=== PATIENT | male | born 1945 | race Caucasian/White ===

== ENCOUNTER 2018-08-06 17:49 | Observation (INO) ==
[2018-08-06 18:31] LABS: Basophils % 0.9 % (0.0-0.8); Eosinophils # 0.1 10*3/uL (0.0-0.87); Eosinophils % 2.2 % (0.00-10.9); Hematocrit 40.4 VOL% (42.0-52.0); Hemoglobin 13.5 GM/DL (14.0-18.0); Immature Granulocytes % 0.2 %; Immature Granulocytes Absolute 0.01 #; Lymphocytes # 1.2 10*3/uL (1.4-4.0); Lymphocytes % 26.1 % (21.2-54.2); Mean Corpuscular HGB Conc 33.4 GM/DL (32-36); Mean Corpuscular Hemoglobin 29 PG (27-34); Mean Corpuscular Volume 86.7 FL (87-102); Mean Platelet Volume 9.6 FL (9.6-12.0); Monocytes # 0.5 10*3/uL (0.11-0.8); Monocytes % 11.4 % (1.7-12.7); Neutrophils # 2.7 10*3/uL (1.4-7.4); Neutrophils % 59.2 % (38.7-73.9); Platelet Count 235 T/CUMM (130-400); Red Blood Count 4.66 MC/CUMM (3.8-5.5); Red Cell Distribution Width 13.5 % (9.3-17.3); White Blood Count 4.5 T/CUMM (4-12)
[2018-08-06 18:42] LABS: INR 0.9
[2018-08-06 18:54] LABS: Alanine Aminotransferase 19 U/L (16-61); Albumin 3.5 G/DL (3.4-5.0); Alkaline Phosphatase 49 U/L (45-117); Aspartate Amino Transferase 15 U/L (0-37); Bilirubin,Total < 0.39 MG/DL (0.2-1.0); Blood Urea Nitrogen 24 MG/DL (7-18); Calcium 9.3 MG/DL (8.5-10.1); Glucose 89 MG/DL (74-106); Osmolality,Calculated 283.3 MOS/KG (273-304); Potassium 3.9 MMOL/L (3.5-5.1); Sodium 141 MMOL/L (136-145); Total Protein 7.5 G/DL (6.4-8.3)
[2018-08-06] MEDS ORDERED: ASPIRIN 325 MG TABLET PO STA (20:30)
[2018-08-06] MEDS ORDERED: ENOXAPARIN 100 MG/ML SYRINGE SUBCUT STA (20:30)
[2018-08-06] MEDS ORDERED: MORPHINE 4 MG/1 ML VIAL IV STA (20:30)
[2018-08-06] MEDS ORDERED: NITROGLYCERIN 2% OINT 1 INCH/GM PACK TOP STA (20:30)
[2018-08-06] MEDS ORDERED: ONDANSETRON 4 MG/2 ML VIAL IV STA (20:30)
[2018-08-06] MEDS ORDERED: ALUM/MAG/SIMETH/LIDO VISC 1:1 30 ML BOTTLE PO STA (20:30)
[2018-08-06] MEDS ORDERED: MORPHINE 4 MG/1 ML VIAL IV PRN (22:21)
[2018-08-06] MEDS ORDERED: ONDANSETRON 4 MG/2 ML VIAL IV PRN (22:21)
[2018-08-07 05:04] LABS: Risk Ratio 2.47
[2018-08-07] MEDS ORDERED: ASPIRIN EC 81 MG TABLET PO SCH (09:00)
[2018-08-07] MEDS ORDERED: CETIRIZINE 10 MG TABLET PO SCH (09:00)
[2018-08-07] MEDS ORDERED: FLUTICASONE 50 MCG NASAL SPRAY 16 GM BOTTLE BOTH NARES SCH (09:00)
[2018-08-07] MEDS ORDERED: SIMVASTATIN 20 MG TABLET PO SCH (09:00)
[2018-08-07] MEDS ORDERED: ASPIRIN EC 325 MG TABLET PO SCH (09:00)
[2018-08-07] MEDS ORDERED: LISINOPRIL 10 MG TABLET PO SCH (09:00)
[2018-08-07] MEDS ORDERED: ENOXAPARIN 60 MG/0.6 ML SYRINGE SUBCUT SCH (09:00)
[2018-08-07 12:04] VITALS: BP 125/70
[2018-08-07] MEDS ORDERED: FAMOTIDINE 20 MG TABLET PO SCH (21:00)
[2018-08-07] MEDS ORDERED: diphenhydrAMINE CAP 25 MG CAPSULE PO SCH (21:00)
[2018-08-07] MEDS ORDERED: GABAPENTIN 300 MG CAPSULE PO SCH (21:00)
== END 2018-08-07 15:40 | disposition home or self-care (01) ==
LOC: N.EDINP 17:49 → N.ED 17:49 → N.3E 08-07 00:12
PROVIDERS: ADMIT Internal Medicine; ATTEND Internal Medicine

== ENCOUNTER 2018-10-03 10:16 | Inpatient (IN) ==
[~2018-10-03 10:16] MED LIST: CETIRIZINE 10 MG TABLET PO SCH; DEXTROSE 50% 25 GM/50 ML SYRINGE IV PRN; GLUCAGON 1 MG VIAL IM PRN; VANCOMYCIN INJ 1,000 MG in SODIUM CHLORIDE 0.9% 250 ML IV ONE; amLODIPine 5 MG TABLET PO SCH
[2018-10-03 11:13] LABS: Basophils # 0.1 10*3/uL (0.0-0.2); Basophils % 1.1 % (0.0-0.8); Eosinophils # 0.2 10*3/uL (0.0-0.87); Eosinophils % 4.5 % (0.00-10.9); Hematocrit 40.3 VOL% (42.0-52.0); Hemoglobin 13.4 GM/DL (14.0-18.0); Immature Granulocytes % 0.2 %; Immature Granulocytes Absolute 0.01 #; Lymphocytes # 1.3 10*3/uL (1.4-4.0); Lymphocytes % 28.3 % (21.2-54.2); Mean Corpuscular HGB Conc 33.3 GM/DL (32-36); Mean Corpuscular Hemoglobin 29 PG (27-34); Mean Corpuscular Volume 87.8 FL (87-102); Mean Platelet Volume 9.8 FL (9.6-12.0); Monocytes # 0.6 10*3/uL (0.11-0.8); Monocytes % 12.8 % (1.7-12.7); Neutrophils # 2.4 10*3/uL (1.4-7.4); Neutrophils % 53.1 % (38.7-73.9); Platelet Count 224 T/CUMM (130-400); Red Blood Count 4.59 MC/CUMM (3.8-5.5); Red Cell Distribution Width 13.6 % (9.3-17.3); White Blood Count 4.5 T/CUMM (4-12)
[2018-10-03 11:25] LABS: ABG HCO3 25.3 MMOL/L (20-26); ABG Oxygen Saturation 97.3 % (95-100); ABG PCO2 38.4 MM HG (35-48); ABG PH 7.425 (7.35-7.45); ABG PO2 88.4 MM HG (80-95); ABG TCO2 21.9 MMOL/L (23-27)
[2018-10-03 11:50] LABS: Alanine Aminotransferase 27 U/L (16-61); Albumin 3.7 G/DL (3.4-5.0); Alkaline Phosphatase 50 U/L (45-117); Aspartate Amino Transferase 19 U/L (0-37); Bilirubin,Total < 0.39 MG/DL (0.2-1.0); Blood Urea Nitrogen 14 MG/DL (7-18); Glucose 92 MG/DL (74-106); Osmolality,Calculated 283.1 MOS/KG (273-304); Sodium 142 MMOL/L (136-145); Total Protein 7.4 G/DL (6.4-8.3)
[2018-10-03] MEDS: ASPIRIN EC 81 MG TABLET PO SCH (13:38)
[2018-10-03] MEDS: FLUTICASONE 50 MCG NASAL SPRAY 16 GM BOTTLE BOTH NARES SCH ×2 (13:43→22:06)
[2018-10-03] MEDS: LISINOPRIL 20 MG TABLET PO SCH (13:44)
[2018-10-03] MEDS: CHLORHEXIDINE 0.12% ORAL RINSE 60 ML BOTTLE SWISH/SPIT SCH ×2 (13:45→22:06)
[2018-10-03] MEDS: CHLORHEXIDINE 4% SOLN 118 ML BOTTLE TOP SCH ×2 (16:40→22:05)
[2018-10-03] MEDS ORDERED: SIMVASTATIN 20 MG TABLET PO SCH (21:00)
[2018-10-03] MEDS ORDERED: GABAPENTIN 300 MG CAPSULE PO SCH (21:00)
[2018-10-03] MEDS ORDERED: diphenhydrAMINE CAP 25 MG CAPSULE PO SCH (21:00)
[2018-10-03] MEDS ORDERED: FAMOTIDINE 20 MG TABLET PO SCH (21:00)
[2018-10-03] MEDS ORDERED: amLODIPine 5 MG TABLET PO SCH (21:00)
[2018-10-03] MEDS: FAMOTIDINE 20 MG TABLET PO SCH (22:03)
[2018-10-04] MEDS ORDERED: VANCOMYCIN 1,000 MG VIAL ONE (05:17)
[2018-10-04] MEDS ORDERED: SUFentanil 250 MCG/5 ML AMP ONE (05:41)
[2018-10-04] MEDS ORDERED: PHENYLEPHRINE DRIP 20 MG/250 ML PREMIX IV ONE (05:41)
[2018-10-04] MEDS ORDERED: HEPARIN/NACL 0.9% 2 UNITS/ML 500 ML IV ONE (05:41)
[2018-10-04] MEDS ORDERED: CALCIUM CHLORIDE 1,000 MG/10 ML VIAL IV ONE (05:41)
[2018-10-04] MEDS ORDERED: ePHEDrine 50 MG/ML AMP ONE (05:41)
[2018-10-04] MEDS ORDERED: MIDAZOLAM 10 MG/2 ML VIAL ONE (05:41)
[2018-10-04] MEDS ORDERED: SODIUM CHLORIDE 0.9% 250 ML IV ONE (05:42)
[2018-10-04] MEDS ORDERED: ETOMIDATE 40 MG/20 ML VIAL IV ONE (05:42)
[2018-10-04] MEDS ORDERED: NITROGLYCERIN DRIP 50 MG/250 ML BOTTLE IV ONE (05:42)
[2018-10-04] MEDS ORDERED: VECURONIUM 10 MG VIAL IV ONE (05:42)
[2018-10-04] MEDS ORDERED: LACTATED RINGERS 1,000 ML IV ONE ×5 (05:42→17:00)
[2018-10-04] MEDS ORDERED: AMINOCAPROIC ACID 5,000 MG/20 ML VIAL ONE (05:42)
[2018-10-04] MEDS ORDERED: SODIUM CHLORIDE 0.9% 1,000 ML IV ONE (05:42)
[2018-10-04] MEDS ORDERED: DIAZEPAM 5 MG TABLET PO ONE (06:00)
[2018-10-04] MEDS ORDERED: VANCOMYCIN INJ 1,000 MG in SODIUM CHLORIDE 0.9% 250 ML IV ONE (07:00)
[2018-10-04 07:42] LABS: ABG Base Excess 0.4 MMOL/L (-2.5-2.5); ABG HCO3 24.8 MMOL/L (20-26); ABG Oxygen Saturation 99.5 % (95-100); ABG PCO2 43.8 MM HG (35-48); ABG PH 7.379 (7.35-7.45); ABG TCO2 22.8 MMOL/L (23-27); Glucose Heart Surgery 98 MG/DL (74-106); Hematocrit Heart Surgery 38.1 PERCENT (42-52); Hemoglobin Heart Surgery 12.4 G/DL (14.0-18.0); Ionized Calcium Arterial 1.22 MMOL/L (1.21-1.46); PCO2 Patient Temp Arterial 43.8 MMHG; PH Patient Temp Arterial 7.379; Patient Temperature 37 CELCIUS; Potassium Heart/CVR 3.6 MMOL/L (3.5-5.1); Sodium Heart/CVR 140 MMOL/L (135-145)
[2018-10-04 07:47] LABS: Apearance,Urine CLEAR (Clear); Bilirubin,Urine Negative (Negative); Blood, Urine Negative (Negative); Glucose,Urine (UA) Negative (Negative); Ketones,Urine Negative (Negative); Mucus,Urine Occasional /LPF (Occasional); Nitrite,Urine Negative (Negative); Protein,Urine Negative; RBC,Urine 1 /HPF (0-4); Urine Color Straw (Yellow); Urine Urobilinogen < 2.0 EU/DL (0.2-1.0); WBC,Urine <1 /HPF (0-6)
[2018-10-04 08:27] LABS: Hematocrit Heart Surgery 24.6 PERCENT (42-52); Hemoglobin Heart Surgery 7.9 G/DL (14.0-18.0); PCO2 Patient Temp Venous 33.8 MM HG; PH Patient Temp Venous 7.467; PO2 Patient Temp Venous 39.6 MM HG; Potassium Heart/CVR 4.2 MMOL/L (3.5-5.1); VBG Base Excess 1.1 MEQ/L (0-4); VBG HCO3 25.3 MEQ/L (24-28); VBG Oxygen Saturation 85.8 %; VBG PCO2 39.1 MMHG (41-51); VBG PH 7.422; VBG PO2 48.6 MMHG (17-40)
[2018-10-04 09:00] LABS: Hematocrit Heart Surgery 26.6 PERCENT (42-52); Hemoglobin Heart Surgery 8.6 G/DL (14.0-18.0); PCO2 Patient Temp Venous 28.5 MM HG; PH Patient Temp Venous 7.519; PO2 Patient Temp Venous 36.1 MM HG; Potassium Heart/CVR 4.4 MMOL/L (3.5-5.1); VBG Base Excess 0.9 MEQ/L (0-4); VBG HCO3 25.1 MEQ/L (24-28); VBG PCO2 32.9 MMHG (41-51); VBG PH 7.474; VBG PO2 44.4 MMHG (17-40)
[2018-10-04] MEDS ORDERED: SIMVASTATIN 20 MG TABLET PO SCH (09:00)
[2018-10-04 09:46] LABS: ABG Base Excess -0.7 MMOL/L (-2.5-2.5); ABG HCO3 23.8 MMOL/L (20-26); ABG Oxygen Saturation 99.9 % (95-100); ABG PCO2 37.6 MM HG (35-48); ABG PH 7.407 (7.35-7.45); ABG TCO2 21.6 MMOL/L (23-27); Glucose Heart Surgery 203 MG/DL (74-106); Hematocrit Heart Surgery 30.1 PERCENT (42-52); Hemoglobin Heart Surgery 9.7 G/DL (14.0-18.0); Ionized Calcium Arterial 1.29 MMOL/L (1.21-1.46); PCO2 Patient Temp Arterial 37.6 MMHG; PH Patient Temp Arterial 7.407; Patient Temperature 37 CELCIUS; Potassium Heart/CVR 4.4 MMOL/L (3.5-5.1); Sodium Heart/CVR 133 MMOL/L (135-145)
[2018-10-04] MEDS ORDERED: DEXTROSE 5% KCL 20 MEQ 20 MEQ/1,000 ML BAG IV ONE (09:53)
[2018-10-04] MEDS ORDERED: MANNITOL 100 GM/500 ML BAG IV ONE (09:53)
[2018-10-04] MEDS ORDERED: PROTAMINE SULFATE 250 MG/25 ML VIAL IV ONE (09:54)
[2018-10-04] MEDS ORDERED: methylPREDNISolone SOD SUC 1,000 MG/8 ML VIAL ONE (09:54)
[2018-10-04] MEDS ORDERED: HEPARIN 10,000 UNIT/10 ML VIAL ONE (09:54)
[2018-10-04] MEDS ORDERED: MAGNESIUM SULFATE 10 GM/20 ML VIAL IV ONE (09:54)
[2018-10-04] MEDS ORDERED: SODIUM BICARBONATE 50 MEQ/50 ML SYRINGE IV ONE (09:54)
[2018-10-04] MEDS ORDERED: ALBUMIN 25% 25 GM/100 ML VIAL IV ONE (09:54)
[2018-10-04] MEDS ORDERED: FUROSEMIDE 20 MG/2 ML VIAL ONE (09:54)
[2018-10-04] MEDS ORDERED: NITROPRUSSIDE 50 MG/2 ML VIAL ONE (09:59)
[2018-10-04] MEDS ORDERED: PHENYLEPHRINE DRIP 40 MG/250 ML PREMIX IV ONE (09:59)
[2018-10-04] MEDS ORDERED: CALCIUM CHLORIDE 1,000 MG/10 ML SYRINGE IV ONE (09:59)
[2018-10-04] MEDS ORDERED: POTASSIUM CHLORIDE RIDER 100 ML IV ONE (10:00)
[2018-10-04] MEDS ORDERED: ALBUMIN 5% 12.5 GM/250 ML VIAL IV ONE (10:00)
[2018-10-04] MEDS ORDERED: NITROGLYCERIN DRIP 50 MG/250 ML BOTTLE IV PRN (10:30)
[2018-10-04] MEDS ORDERED: MIDAZOLAM 10 MG/2 ML VIAL IV PRN (10:43)
[2018-10-04] MEDS ORDERED: NITROPRUSSIDE 100 MG in DEXTROSE 5% 250 ML IV PRN (10:43)
[2018-10-04] MEDS ORDERED: LACTATED RINGERS 250 ML IV PRN (10:43)
[2018-10-04] MEDS ORDERED: MORPHINE 4 MG/1 ML VIAL IV PRN (10:43)
[2018-10-04] MEDS ORDERED: DEXTROSE 50% 25 GM/50 ML SYRINGE IV PRN ×2 (10:43)
[2018-10-04] MEDS ORDERED: ACETAMINOPHEN 650 MG SUPP RECTAL PRN (10:43)
[2018-10-04] MEDS ORDERED: INSULIN REGULAR 100 UNIT/ML IV PRN (10:43)
[2018-10-04] MEDS ORDERED: VECURONIUM 10 MG VIAL IV PRN ×2 (10:43)
[2018-10-04] MEDS ORDERED: PHENYLEPHRINE DRIP 40 MG/250 ML PREMIX IV PRN (10:43)
[2018-10-04] MEDS ORDERED: CALCIUM CHLORIDE 1,000 MG/10 ML SYRINGE IV PRN (10:43)
[2018-10-04] MEDS ORDERED: MIDAZOLAM 2 MG/2 ML VIAL IV PRN (10:43)
[2018-10-04] MEDS ORDERED: MAGNESIUM SULF RIDER 2 GM in PREMIX 1 EACH IV PRN (10:43)
[2018-10-04] MEDS ORDERED: MAGNESIUM SULF RIDER 4 GM in PREMIX 1 EACH IV PRN (10:43)
[2018-10-04] MEDS ORDERED: CARBOXYMETHYLCELLULOSE 1% OPH SOLN BOTH EYES PRN (10:43)
[2018-10-04] MEDS ORDERED: INSULIN REGULAR 100 UNIT/ML IV ONE (10:43)
[2018-10-04] MEDS ORDERED: ONDANSETRON 4 MG/2 ML VIAL IV PRN (10:43)
[2018-10-04 10:50] LABS: ABG Base Excess -0.6 MMOL/L (-2.5-2.5); ABG HCO3 23.9 MMOL/L (20-26); ABG Oxygen Saturation 99.9 % (95-100); ABG PCO2 34.7 MM HG (35-48); ABG PH 7.433 (7.35-7.45); ABG TCO2 20.9 MMOL/L (23-27); Glucose Heart Surgery 177 MG/DL (74-106); Hemoglobin Heart Surgery 10.3 G/DL (14.0-18.0); Potassium Heart/CVR 3.9 MMOL/L (3.5-5.1)
[2018-10-04] MEDS ORDERED: PROTAMINE SULFATE 50 MG/5 ML VIAL IV ONE (10:50)
[2018-10-04 10:54] LABS: Basophils % 0.3 % (0.0-0.8); Eosinophils # 0.1 10*3/uL (0.0-0.87); Eosinophils % 1.5 % (0.00-10.9); Hematocrit 29.6 VOL% (42.0-52.0); Immature Granulocytes % 0.5 %; Immature Granulocytes Absolute 0.03 #; Lymphocytes # 0.7 10*3/uL (1.4-4.0); Mean Corpuscular HGB Conc 33.4 GM/DL (32-36); Mean Corpuscular Hemoglobin 29 PG (27-34); Mean Corpuscular Volume 87.6 FL (87-102); Mean Platelet Volume 9.5 FL (9.6-12.0); Monocytes # 0.2 10*3/uL (0.11-0.8); Neutrophils % 82.7 % (38.7-73.9); Red Cell Distribution Width 13.6 % (9.3-17.3)
[2018-10-04 10:58] LABS: Hemoglobin 9.9 GM/DL (14.0-18.0); Red Blood Count 3.38 MC/CUMM (3.8-5.5); White Blood Count 6.1 T/CUMM (4-12)
[2018-10-04 10:59] LABS: Platelet Count 145 T/CUMM (130-400)
[2018-10-04] MEDS ORDERED: INSULIN REGULAR DRIP 100 ML IV SCH (11:00)
[2018-10-04] MEDS ORDERED: SODIUM CHLORIDE 0.45% 1,000 ML IV SCH ×2 (11:00)
[2018-10-04] MEDS ORDERED: SEVOFLURANE 1 UNIT/15 MINUTE INH ONE (11:01)
[2018-10-04] MEDS ORDERED: SODIUM CHLORIDE 0.9% 100 ML IV ONE (11:01)
[2018-10-04 11:03] LABS: INR 1.1; PT Patient Result 11.6 SECS
[2018-10-04 11:09] LABS: Albumin 3.2 G/DL (3.4-5.0); Bilirubin,Total 0.7 MG/DL (0.2-1.0); Osmolality,Calculated 281.5 MOS/KG (273-304); Total Protein 5.6 G/DL (6.4-8.3)
[2018-10-04 11:11] LABS: Troponin I 2.16 NG/ML (0.00-0.045)
[2018-10-04] MEDS: POTASSIUM CHLORIDE RIDER 20 MEQ in PREMIX 1 EACH IV PRN ×4 (11:17→21:19)
[2018-10-04] MEDS: CHLORHEXIDINE 4% SOLN 118 ML BOTTLE TOP SCH (11:22)
[2018-10-04] MEDS: KETOROLAC 30 MG/1 ML VIAL IV SCH ×3 (11:24→23:24)
[2018-10-04] MEDS: POTASSIUM CHLORIDE RIDER 10 MEQ in PREMIX 1 EACH IV PRN ×2 (11:50→16:01)
[2018-10-04 12:55] LABS: ABG Base Excess -1.3 MMOL/L (-2.5-2.5); ABG HCO3 23.4 MMOL/L (20-26); ABG Oxygen Saturation 99.8 % (95-100); ABG PCO2 32.4 MM HG (35-48); ABG PH 7.444 (7.35-7.45); ABG TCO2 20.4 MMOL/L (23-27); Glucose Heart Surgery 154 MG/DL (74-106); Hematocrit Heart Surgery 28.3 PERCENT (42-52); Hemoglobin Heart Surgery 9.1 G/DL (14.0-18.0)
[2018-10-04] MEDS: MORPHINE 10 MG/1 ML VIAL IV PRN ×2 (14:27→23:46)
[2018-10-04 15:12] LABS: ABG Base Excess -3.2 MMOL/L (-2.5-2.5); ABG HCO3 21.7 MMOL/L (20-26); ABG Oxygen Saturation 98.7 % (95-100); ABG PCO2 40.6 MM HG (35-48); ABG PH 7.346 (7.35-7.45); ABG TCO2 20.2 MMOL/L (23-27); Glucose Heart Surgery 219 MG/DL (74-106); Hematocrit Heart Surgery 32.1 PERCENT (42-52); Hemoglobin Heart Surgery 10.4 G/DL (14.0-18.0); Potassium Heart/CVR 3.7 MMOL/L (3.5-5.1)
[2018-10-04] MEDS: ALBUMIN 5% 12.5 GM in PREMIX 1 EACH IV PRN ×2 (15:40→19:33)
[2018-10-04 18:35] LABS: ABG Base Excess -5.3 MMOL/L (-2.5-2.5); ABG Oxygen Saturation 98.9 % (95-100); ABG PCO2 35.5 MM HG (35-48); ABG PH 7.351 (7.35-7.45); ABG TCO2 17.9 MMOL/L (23-27); Glucose Heart Surgery 213 MG/DL (74-106); Hematocrit Heart Surgery 31.3 PERCENT (42-52); Hemoglobin Heart Surgery 10.1 G/DL (14.0-18.0); Potassium Heart/CVR 3.8 MMOL/L (3.5-5.1)
[2018-10-04 18:53] LABS: CKMB % 5.5 %
[2018-10-04 18:55] LABS: Troponin I 2.72 NG/ML (0.00-0.045)
[2018-10-04 20:06] LABS: ABG Base Excess -5.3 MMOL/L (-2.5-2.5); ABG Oxygen Saturation 98.9 % (95-100); ABG PCO2 36.5 MM HG (35-48); ABG PH 7.343 (7.35-7.45); ABG TCO2 18.3 MMOL/L (23-27); Glucose Heart Surgery 177 MG/DL (74-106); Hematocrit Heart Surgery 28.6 PERCENT (42-52); Hemoglobin Heart Surgery 9.2 G/DL (14.0-18.0); Potassium Heart/CVR 3.9 MMOL/L (3.5-5.1)
[2018-10-04] MEDS ORDERED: CHLORHEXIDINE 0.12% ORAL RINSE 60 ML BOTTLE SWISH/SPIT SCH (21:00)
[2018-10-04] MEDS ORDERED: FUROSEMIDE 40 MG/4 ML VIAL IV ONE (22:14)
[2018-10-04] MEDS ORDERED: VANCOMYCIN INJ 1,000 MG in SODIUM CHLORIDE 0.9% 250 ML IV SCH (22:34)
[2018-10-05] MEDS ORDERED: LACTATED RINGERS 1,000 ML IV ONE (00:58)
[2018-10-05 04:09] LABS: ABG Base Excess -0.9 MMOL/L (-2.5-2.5); ABG HCO3 23.9 MMOL/L (20-26); ABG Oxygen Saturation 97.2 % (95-100); ABG PH 7.394 (7.35-7.45); ABG PO2 108.8 MM HG (80-95); ABG TCO2 25.1 MMOL/L (23-27); Glucose Heart Surgery 139 MG/DL (74-106); Potassium Heart/CVR 4.2 MMOL/L (3.5-5.1)
[2018-10-05 04:13] LABS: Basophils % 0.1 % (0.0-0.8); Hematocrit 26.9 VOL% (42.0-52.0); Immature Granulocytes % 0.3 %; Immature Granulocytes Absolute 0.03 #; Lymphocytes # 0.5 10*3/uL (1.4-4.0); Lymphocytes % 5.1 % (21.2-54.2); Mean Corpuscular HGB Conc 33.5 GM/DL (32-36); Mean Corpuscular Hemoglobin 29 PG (27-34); Mean Corpuscular Volume 87.6 FL (87-102); Mean Platelet Volume 10.4 FL (9.6-12.0); Monocytes # 0.5 10*3/uL (0.11-0.8); Monocytes % 4.5 % (1.7-12.7); Neutrophils # 9.3 10*3/uL (1.4-7.4); Platelet Count 124 T/CUMM (130-400); Red Blood Count 3.07 MC/CUMM (3.8-5.5); Red Cell Distribution Width 14.2 % (9.3-17.3); White Blood Count 10.3 T/CUMM (4-12)
[2018-10-05] MEDS: POTASSIUM CHLORIDE RIDER 20 MEQ in PREMIX 1 EACH IV PRN (04:22)
[2018-10-05] MEDS ORDERED: SODIUM CHLORIDE 0.9% 1,000 ML IV PRN (04:31)
[2018-10-05 04:40] LABS: Albumin 3.4 G/DL (3.4-5.0); Bilirubin,Direct 0.22 MG/DL (0.0-0.20); Bilirubin,Total 0.6 MG/DL (0.2-1.0); Calcium 8.2 MG/DL (8.5-10.1); Osmolality,Calculated 286.1 MOS/KG (273-304); Potassium 4.2 MMOL/L (3.5-5.1); Total Protein 5.5 G/DL (6.4-8.3)
[2018-10-05 04:42] LABS: CKMB % 3.2 %
[2018-10-05] MEDS: KETOROLAC 30 MG/1 ML VIAL IV SCH ×4 (04:55→23:26)
[2018-10-05] MEDS ORDERED: ONDANSETRON 4 MG/2 ML VIAL IV PRN (07:18)
[2018-10-05] MEDS ORDERED: GLUCAGON 1 MG VIAL IM PRN ×2 (07:18)
[2018-10-05] MEDS ORDERED: ALUMINUM/MAGNES/SIMETH MAX STR 30 ML UDCUP PO PRN (07:18)
[2018-10-05] MEDS ORDERED: oxyCODONE/ACETAMINOPHEN 5-325 MG TABLET PO PRN (07:18)
[2018-10-05] MEDS ORDERED: MAGNESIUM SULF RIDER 4 GM in PREMIX 1 EACH IV PRN (07:18)
[2018-10-05] MEDS ORDERED: ZALEPLON 5 MG CAPSULE PO PRN (07:18)
[2018-10-05] MEDS ORDERED: DEXTROSE 50% 25 GM/50 ML SYRINGE IV PRN ×2 (07:18)
[2018-10-05] MEDS ORDERED: MAGNESIUM HYDROXIDE SUSP 30 ML UDCUP PO PRN (07:18)
[2018-10-05] MEDS ORDERED: MAGNESIUM SULF RIDER 2 GM in PREMIX 1 EACH IV PRN (07:18)
[2018-10-05] MEDS: FLUTICASONE 50 MCG NASAL SPRAY 16 GM BOTTLE BOTH NARES SCH ×5 (07:22→20:59)
[2018-10-05] MEDS: CHLORHEXIDINE 0.12% ORAL RINSE 60 ML BOTTLE SWISH/SPIT SCH ×3 (07:23→20:57)
[2018-10-05] MEDS: LISINOPRIL 20 MG TABLET PO SCH (07:23)
[2018-10-05] MEDS: ASPIRIN EC 81 MG TABLET PO SCH (07:23)
[2018-10-05] MEDS: INSULIN REGULAR 100 UNIT/ML SUBCUT SCH ×5 (08:13→21:02)
[2018-10-05 08:19] LABS: Hematocrit 30.6 VOL% (42.0-52.0); Hemoglobin 10.2 GM/DL (14.0-18.0)
[2018-10-05] MEDS: ASPIRIN EC 325 MG TABLET PO SCH (08:20)
[2018-10-05] MEDS: FERROUS SULFATE 325 MG TABLET PO SCH (08:20)
[2018-10-05] MEDS: DOCUSATE SODIUM 100 MG CAPSULE PO SCH (08:20)
[2018-10-05] MEDS: LORATADINE 10 MG TABLET PO SCH (08:20)
[2018-10-05] MEDS: CETIRIZINE 10 MG TABLET PO SCH (08:20)
[2018-10-05] MEDS: PANTOPRAZOLE 40 MG TABLET PO SCH (08:21)
[2018-10-05] MEDS: FAMOTIDINE 20 MG TABLET PO SCH (09:33)
[2018-10-05] MEDS: SODIUM CHLORIDE 0.9% 1,000 ML IV SCH ×2 (09:33→09:34)
[2018-10-05] MEDS: SODIUM CHLOR 0.45% KCL 20 MEQ 20 MEQ/1,000 ML BAG IV SCH (09:53)
[2018-10-05] MEDS: GABAPENTIN 300 MG CAPSULE PO SCH (20:54)
[2018-10-05] MEDS: amLODIPine 5 MG TABLET PO SCH (20:54)
[2018-10-05] MEDS: diphenhydrAMINE CAP 25 MG CAPSULE PO SCH (20:54)
[2018-10-05] MEDS: SIMVASTATIN 20 MG TABLET PO SCH (20:55)
[2018-10-06] MEDS: INSULIN REGULAR 100 UNIT/ML SUBCUT SCH ×6 (00:21→21:39)
[2018-10-06 04:57] LABS: Basophils % 0.1 % (0.0-0.8); Hematocrit 32.3 VOL% (42.0-52.0); Hemoglobin 10.6 GM/DL (14.0-18.0); Immature Granulocytes % 0.6 %; Immature Granulocytes Absolute 0.07 #; Lymphocytes # 0.7 10*3/uL (1.4-4.0); Lymphocytes % 5.9 % (21.2-54.2); Mean Corpuscular HGB Conc 32.8 GM/DL (32-36); Mean Corpuscular Hemoglobin 30 PG (27-34); Mean Platelet Volume 10.7 FL (9.6-12.0); Monocytes % 8.4 % (1.7-12.7); Neutrophils # 9.8 10*3/uL (1.4-7.4); Platelet Count 109 T/CUMM (130-400); Red Blood Count 3.59 MC/CUMM (3.8-5.5); Red Cell Distribution Width 14.6 % (9.3-17.3); White Blood Count 11.5 T/CUMM (4-12)
[2018-10-06] MEDS: KETOROLAC 30 MG/1 ML VIAL IV SCH ×4 (05:15→23:54)
[2018-10-06 05:25] LABS: Alanine Aminotransferase 22 U/L (16-61); Alkaline Phosphatase 36 U/L (45-117); Aspartate Amino Transferase 31 U/L (0-37); Bilirubin,Indirect 0.8 MG/DL (0.0-1.0); Blood Urea Nitrogen 29 MG/DL (7-18); Calcium 8.2 MG/DL (8.5-10.1); Glucose 133 MG/DL (74-106); Osmolality,Calculated 286.4 MOS/KG (273-304); Potassium 5.1 MMOL/L (3.5-5.1); Sodium 140 MMOL/L (136-145); Total Protein 5.6 G/DL (6.4-8.3)
[2018-10-06] MEDS ORDERED: FUROSEMIDE 40 MG/4 ML VIAL IV ONE (06:00)
[2018-10-06] MEDS: SODIUM CHLOR 0.45% KCL 20 MEQ 20 MEQ/1,000 ML BAG IV SCH (06:43)
[2018-10-06] MEDS: CETIRIZINE 10 MG TABLET PO SCH (08:59)
[2018-10-06] MEDS: DOCUSATE SODIUM 100 MG CAPSULE PO SCH (08:59)
[2018-10-06] MEDS: FERROUS SULFATE 325 MG TABLET PO SCH (08:59)
[2018-10-06] MEDS: PANTOPRAZOLE 40 MG TABLET PO SCH (08:59)
[2018-10-06] MEDS: ASPIRIN EC 325 MG TABLET PO SCH (08:59)
[2018-10-06] MEDS: LORATADINE 10 MG TABLET PO SCH (08:59)
[2018-10-06] MEDS: FLUTICASONE 50 MCG NASAL SPRAY 16 GM BOTTLE BOTH NARES SCH ×2 (09:02→21:40)
[2018-10-06] MEDS: CHLORHEXIDINE 0.12% ORAL RINSE 60 ML BOTTLE SWISH/SPIT SCH ×2 (09:02→21:40)
[2018-10-06] MEDS: diphenhydrAMINE CAP 25 MG CAPSULE PO SCH (21:39)
[2018-10-06] MEDS: GABAPENTIN 300 MG CAPSULE PO SCH (21:39)
[2018-10-06] MEDS: amLODIPine 5 MG TABLET PO SCH (21:39)
[2018-10-06] MEDS: SIMVASTATIN 20 MG TABLET PO SCH (21:40)
[2018-10-07 04:28] LABS: Basophils % 0.1 % (0.0-0.8); Eosinophils % 0.6 % (0.00-10.9); Hematocrit 29.4 VOL% (42.0-52.0); Hemoglobin 9.6 GM/DL (14.0-18.0); Immature Granulocytes Absolute 0.07 #; Lymphocytes # 1.1 10*3/uL (1.4-4.0); Lymphocytes % 15.2 % (21.2-54.2); Mean Corpuscular HGB Conc 32.7 GM/DL (32-36); Mean Corpuscular Hemoglobin 29 PG (27-34); Mean Corpuscular Volume 89.9 FL (87-102); Mean Platelet Volume 10.6 FL (9.6-12.0); Monocytes # 0.7 10*3/uL (0.11-0.8); Monocytes % 10.2 % (1.7-12.7); Neutrophils # 5.2 10*3/uL (1.4-7.4); Neutrophils % 72.9 % (38.7-73.9); Platelet Count 101 T/CUMM (130-400); Red Blood Count 3.27 MC/CUMM (3.8-5.5); Red Cell Distribution Width 14.5 % (9.3-17.3); White Blood Count 7.2 T/CUMM (4-12)
[2018-10-07 05:39] LABS: Alanine Aminotransferase 21 U/L (16-61); Albumin 2.5 G/DL (3.4-5.0); Alkaline Phosphatase 44 U/L (45-117); Aspartate Amino Transferase 23 U/L (0-37); Blood Urea Nitrogen 35 MG/DL (7-18); Calcium 8.1 MG/DL (8.5-10.1); Glucose 86 MG/DL (74-106); Osmolality,Calculated 289.1 MOS/KG (273-304); Potassium 3.9 MMOL/L (3.5-5.1); Sodium 142 MMOL/L (136-145); Total Protein 5.1 G/DL (6.4-8.3)
[2018-10-07] MEDS: KETOROLAC 30 MG/1 ML VIAL IV SCH (06:20)
[2018-10-07] MEDS ORDERED: KETOROLAC 30 MG/1 ML VIAL IV SCH (06:30)
[2018-10-07] MEDS: ASPIRIN EC 325 MG TABLET PO SCH (09:25)
[2018-10-07] MEDS: CHLORHEXIDINE 0.12% ORAL RINSE 60 ML BOTTLE SWISH/SPIT SCH ×2 (09:25→22:33)
[2018-10-07] MEDS: DOCUSATE SODIUM 100 MG CAPSULE PO SCH (09:25)
[2018-10-07] MEDS: LORATADINE 10 MG TABLET PO SCH (09:25)
[2018-10-07] MEDS: FERROUS SULFATE 325 MG TABLET PO SCH (09:25)
[2018-10-07] MEDS: FLUTICASONE 50 MCG NASAL SPRAY 16 GM BOTTLE BOTH NARES SCH ×2 (09:25→21:18)
[2018-10-07] MEDS: INSULIN REGULAR 100 UNIT/ML SUBCUT SCH ×4 (09:25→21:17)
[2018-10-07] MEDS: PANTOPRAZOLE 40 MG TABLET PO SCH (09:25)
[2018-10-07] MEDS: CETIRIZINE 10 MG TABLET PO SCH (09:25)
[2018-10-07] MEDS: ACETAMINOPHEN 325 MG TABLET PO PRN (16:49)
[2018-10-07] MEDS ORDERED: AMIODARONE INJ 150 MG in DEXTROSE 5% 100 ML IV ONE (18:44)
[2018-10-07] MEDS ORDERED: DILTIAZEM 50 MG/10 ML VIAL IV ONE (18:45)
[2018-10-07] MEDS ORDERED: AMIODARONE 450 MG/9 ML VIAL IV ONE (18:46)
[2018-10-07] MEDS ORDERED: AMIODARONE 150 MG/3 ML VIAL ONE (18:46)
[2018-10-07] MEDS ORDERED: DILTIAZEM 25 MG/5 ML VIAL IV ONE (18:46)
[2018-10-07] MEDS: dilTIAZem Drip 125 MG/125 ML PREMIX IV SCH (19:08)
[2018-10-07] MEDS ORDERED: AMIODARONE INJ 450 MG in DEXTROSE 5% 241 ML IV SCH (19:30)
[2018-10-07] MEDS: GABAPENTIN 300 MG CAPSULE PO SCH (21:17)
[2018-10-07] MEDS: diphenhydrAMINE CAP 25 MG CAPSULE PO SCH (21:17)
[2018-10-07] MEDS: amLODIPine 5 MG TABLET PO SCH (22:33)
[2018-10-07] MEDS: SIMVASTATIN 20 MG TABLET PO SCH (22:33)
[2018-10-08] MEDS: AMIODARONE INJ 450 MG in DEXTROSE 5% 241 ML IV SCH (01:20)
[2018-10-08] MEDS: DOCUSATE SODIUM 100 MG CAPSULE PO SCH (08:54)
[2018-10-08] MEDS: ASPIRIN EC 325 MG TABLET PO SCH (08:54)
[2018-10-08] MEDS: CETIRIZINE 10 MG TABLET PO SCH (08:54)
[2018-10-08] MEDS: PANTOPRAZOLE 40 MG TABLET PO SCH (08:54)
[2018-10-08] MEDS: FLUTICASONE 50 MCG NASAL SPRAY 16 GM BOTTLE BOTH NARES SCH ×2 (08:55→21:07)
[2018-10-08] MEDS: CHLORHEXIDINE 0.12% ORAL RINSE 60 ML BOTTLE SWISH/SPIT SCH ×2 (08:55→23:05)
[2018-10-08] MEDS: FERROUS SULFATE 325 MG TABLET PO SCH (08:55)
[2018-10-08] MEDS: LORATADINE 10 MG TABLET PO SCH (09:37)
[2018-10-08] MEDS: ACETAMINOPHEN 325 MG TABLET PO PRN (16:44)
[2018-10-08] MEDS: NAPROXEN 250 MG TABLET PO SCH ×2 (18:22→23:04)
[2018-10-08] MEDS: AMIODARONE 200 MG TABLET PO SCH ×2 (18:22→23:04)
[2018-10-08] MEDS: SIMVASTATIN 20 MG TABLET PO SCH (21:05)
[2018-10-08] MEDS: diphenhydrAMINE CAP 25 MG CAPSULE PO SCH (21:05)
[2018-10-08] MEDS: GABAPENTIN 300 MG CAPSULE PO SCH (21:05)
[2018-10-08] MEDS: amLODIPine 5 MG TABLET PO SCH (21:05)
[2018-10-09 04:34] LABS: Basophils % 0.5 % (0.0-0.8); Eosinophils # 0.2 10*3/uL (0.0-0.87); Eosinophils % 3.9 % (0.00-10.9); Hematocrit 29.4 VOL% (42.0-52.0); Hemoglobin 9.7 GM/DL (14.0-18.0); Immature Granulocytes % 1.2 %; Immature Granulocytes Absolute 0.07 #; Lymphocytes # 0.8 10*3/uL (1.4-4.0); Lymphocytes % 14.8 % (21.2-54.2); Mean Corpuscular Hemoglobin 29 PG (27-34); Mean Corpuscular Volume 88.6 FL (87-102); Mean Platelet Volume 10.6 FL (9.6-12.0); Monocytes # 0.7 10*3/uL (0.11-0.8); Monocytes % 11.8 % (1.7-12.7); Neutrophils # 3.9 10*3/uL (1.4-7.4); Neutrophils % 67.8 % (38.7-73.9); Platelet Count 147 T/CUMM (130-400); Red Blood Count 3.32 MC/CUMM (3.8-5.5); Red Cell Distribution Width 13.9 % (9.3-17.3); White Blood Count 5.7 T/CUMM (4-12)
[2018-10-09 05:10] LABS: Alanine Aminotransferase 22 U/L (16-61); Albumin 2.7 G/DL (3.4-5.0); Alkaline Phosphatase 59 U/L (45-117); Aspartate Amino Transferase 13 U/L (0-37); Bilirubin,Indirect 1.6 MG/DL (0.0-1.0); Blood Urea Nitrogen 18 MG/DL (7-18); Calcium 8.2 MG/DL (8.5-10.1); Glucose 89 MG/DL (74-106); Potassium 3.6 MMOL/L (3.5-5.1); Sodium 143 MMOL/L (136-145); Total Protein 5.6 G/DL (6.4-8.3)
[2018-10-09 05:16] LABS: Troponin I 0.303 NG/ML (0.00-0.045)
[2018-10-09] MEDS: FERROUS SULFATE 325 MG TABLET PO SCH (08:15)
[2018-10-09] MEDS: DOCUSATE SODIUM 100 MG CAPSULE PO SCH (08:15)
[2018-10-09] MEDS: NAPROXEN 250 MG TABLET PO SCH ×3 (08:15→21:30)
[2018-10-09] MEDS: POTASSIUM CHLORIDE 20 MEQ TABLET PO PRN ×2 (08:16→10:30)
[2018-10-09] MEDS: ASPIRIN EC 325 MG TABLET PO SCH (08:16)
[2018-10-09] MEDS: AMIODARONE 200 MG TABLET PO SCH ×2 (08:17→21:30)
[2018-10-09] MEDS: LORATADINE 10 MG TABLET PO SCH (08:22)
[2018-10-09] MEDS: CHLORHEXIDINE 0.12% ORAL RINSE 60 ML BOTTLE SWISH/SPIT SCH ×2 (08:23→21:30)
[2018-10-09] MEDS: PANTOPRAZOLE 40 MG TABLET PO SCH (08:23)
[2018-10-09] MEDS: CETIRIZINE 10 MG TABLET PO SCH (08:23)
[2018-10-09] MEDS: FLUTICASONE 50 MCG NASAL SPRAY 16 GM BOTTLE BOTH NARES SCH ×2 (08:23→21:30)
[2018-10-09] MEDS: dilTIAZem Drip 125 MG/125 ML PREMIX IV SCH ×2 (18:51→21:30)
[2018-10-09] MEDS: AMIODARONE INJ 450 MG in DEXTROSE 5% 241 ML IV SCH ×2 (18:53→18:54)
[2018-10-09] MEDS: amLODIPine 5 MG TABLET PO SCH (21:30)
[2018-10-09] MEDS: diphenhydrAMINE CAP 25 MG CAPSULE PO SCH (21:30)
[2018-10-09] MEDS: SIMVASTATIN 20 MG TABLET PO SCH (21:30)
[2018-10-09] MEDS: GABAPENTIN 300 MG CAPSULE PO SCH (21:30)
[2018-10-10 04:54] LABS: Basophils % 0.3 % (0.0-0.8); Eosinophils # 0.3 10*3/uL (0.0-0.87); Eosinophils % 4.4 % (0.00-10.9); Hematocrit 30.8 VOL% (42.0-52.0); Hemoglobin 10.1 GM/DL (14.0-18.0); Immature Granulocytes % 1.7 %; Immature Granulocytes Absolute 0.12 #; Lymphocytes % 13.6 % (21.2-54.2); Mean Corpuscular HGB Conc 32.8 GM/DL (32-36); Mean Corpuscular Hemoglobin 29 PG (27-34); Mean Corpuscular Volume 89.8 FL (87-102); Mean Platelet Volume 10.1 FL (9.6-12.0); Monocytes % 13.1 % (1.7-12.7); Neutrophils # 4.9 10*3/uL (1.4-7.4); Neutrophils % 66.9 % (38.7-73.9); Platelet Count 176 T/CUMM (130-400); Red Blood Count 3.43 MC/CUMM (3.8-5.5); Red Cell Distribution Width 13.8 % (9.3-17.3); White Blood Count 7.3 T/CUMM (4-12)
[2018-10-10 05:15] LABS: Alanine Aminotransferase 24 U/L (16-61); Albumin 2.5 G/DL (3.4-5.0); Alkaline Phosphatase 64 U/L (45-117); Aspartate Amino Transferase 16 U/L (0-37); Bilirubin,Indirect 0.8 MG/DL (0.0-1.0); Blood Urea Nitrogen 18 MG/DL (7-18); Calcium 8.5 MG/DL (8.5-10.1); Glucose 90 MG/DL (74-106); Osmolality,Calculated 280.4 MOS/KG (273-304); Potassium 4.2 MMOL/L (3.5-5.1); Sodium 140 MMOL/L (136-145); Total Protein 5.6 G/DL (6.4-8.3)
[2018-10-10 05:17] LABS: Troponin I 0.146 NG/ML (0.00-0.045)
[2018-10-10 08:29] VITALS: BP 128/64
[2018-10-10] MEDS: ASPIRIN EC 325 MG TABLET PO SCH (09:16)
[2018-10-10] MEDS: DOCUSATE SODIUM 100 MG CAPSULE PO SCH (09:16)
[2018-10-10] MEDS: AMIODARONE INJ 450 MG in DEXTROSE 5% 241 ML IV SCH (09:16)
[2018-10-10] MEDS: NAPROXEN 250 MG TABLET PO SCH (09:17)
[2018-10-10] MEDS: CETIRIZINE 10 MG TABLET PO SCH (09:17)
[2018-10-10] MEDS: FERROUS SULFATE 325 MG TABLET PO SCH (09:17)
[2018-10-10] MEDS: CHLORHEXIDINE 0.12% ORAL RINSE 60 ML BOTTLE SWISH/SPIT SCH (09:17)
[2018-10-10] MEDS: FLUTICASONE 50 MCG NASAL SPRAY 16 GM BOTTLE BOTH NARES SCH (09:17)
[2018-10-10] MEDS: LORATADINE 10 MG TABLET PO SCH (09:17)
[2018-10-10] MEDS: AMIODARONE 200 MG TABLET PO SCH (09:17)
[2018-10-10] MEDS: PANTOPRAZOLE 40 MG TABLET PO SCH (09:17)
== END 2018-10-10 11:20 | disposition home health service (06) | DRG 220 ==
LOC: N.TELEN 10:16 → N.CVR 10-04 09:53 → N.TELES 10-05 08:58

== ENCOUNTER 2020-06-28 11:42 | Inpatient (IN) ==
[2020-06-28] MEDS ORDERED: SODIUM CHLORIDE 0.9% 1,000 ML IV STA (15:03)
[2020-06-28 15:28] LABS: Basophils % 0.3 % (0.0-0.8); Eosinophils # 0.1 10*3/uL (0.0-0.87); Eosinophils % 0.7 % (0.00-10.9); Hematocrit 31.7 VOL% (42.0-52.0); Hemoglobin 11.3 GM/DL (14.0-18.0); Immature Granulocytes % 1.1 %; Immature Granulocytes Absolute 0.15 #; Lymphocytes # 0.8 10*3/uL (1.4-4.0); Lymphocytes % 5.9 % (21.2-54.2); Mean Corpuscular HGB Conc 35.6 GM/DL (32-36); Mean Corpuscular Volume 82.8 FL (87-102); Mean Platelet Volume 9.5 FL (9.6-12.0); Monocytes % 5.9 % (1.7-12.7); Neutrophils % 86.1 % (38.7-73.9); Platelet Count 356 T/CUMM (130-400); Red Blood Count 3.83 MC/CUMM (3.8-5.5); White Blood Count 13.7 T/CUMM (4-12)
[2020-06-28 15:53] LABS: Albumin 2.5 G/DL (3.4-5.0); Bilirubin,Total 0.5 MG/DL (0.2-1.0); Calcium 8.4 MG/DL (8.5-10.1); Osmolality,Calculated 274.8 MOS/KG (273-304); Potassium 3.2 MMOL/L (3.5-5.1)
[2020-06-28] MEDS ORDERED: POTASSIUM CHLORIDE 20 MEQ TABLET PO STA (16:32)
[2020-06-28 18:03] LABS: Bacteria,Urine Few /HPF (Few); Bilirubin,Urine Negative (Negative); Blood, Urine Moderate mg/dL (Negative); Glucose,Urine (UA) Negative (Negative); Ketones,Urine Negative (Negative); Nitrite,Urine Positive (Negative); Protein,Urine 30 MG/DL; RBC,Urine 16 /HPF (0-4); Squamous Epithelial Cell,Urine Occasional /HPF (0-10); Urine Appearance CLEAR (Clear); Urine Color Yellow (Yellow); Urine Specific Gravity 1.011 (1.001-1.035); Urine Urobilinogen < 2.0 EU/DL (0.2-1.0); WBC,Urine 19 /HPF (0-6)
[2020-06-28] MEDS ORDERED: DEXTROSE 50% 25 GM/50 ML SYRINGE IV PRN (19:47)
[2020-06-28] MEDS ORDERED: GLUCAGON 1 MG VIAL IM PRN ×2 (19:47→19:55)
[2020-06-28] MEDS ORDERED: DEXTROSE 50% 25 GM/50 ML VIAL IV PRN (19:55)
[2020-06-28] MEDS ORDERED: INSULIN LISPRO 100 UNIT/ML SUBCUT SCH (21:00)
[2020-06-28] MEDS: cefTRIAXone 1,000 MG in SYRINGE 1 EACH IV SCH (21:16)
[2020-06-28] MEDS: ENOXAPARIN 40 MG/0.4 ML SYRINGE SUBCUT SCH (21:16)
[2020-06-29 02:16] LABS: Basophils % 0.3 % (0.0-0.8); Eosinophils # 0.1 10*3/uL (0.0-0.87); Eosinophils % 1.4 % (0.00-10.9); Hematocrit 27.9 VOL% (42.0-52.0); Hemoglobin 9.8 GM/DL (14.0-18.0); Immature Granulocytes % 0.7 %; Immature Granulocytes Absolute 0.07 #; Lymphocytes # 0.7 10*3/uL (1.4-4.0); Mean Corpuscular HGB Conc 35.1 GM/DL (32-36); Mean Corpuscular Volume 83.5 FL (87-102); Mean Platelet Volume 9.5 FL (9.6-12.0); Monocytes % 7.5 % (1.7-12.7); Neutrophils % 83.1 % (38.7-73.9); Platelet Count 340 T/CUMM (130-400); Red Blood Count 3.34 MC/CUMM (3.8-5.5); Red Cell Distribution Width 14.9 % (9.3-17.3); White Blood Count 10.1 T/CUMM (4-12)
[2020-06-29] MEDS: VANCOMYCIN 50 MG/ML 60 ML/BOTTLE PO SCH ×4 (02:20→17:07)
[2020-06-29 02:48] LABS: Osmolality,Calculated 279.4 MOS/KG (273-304); Risk Ratio 5.53; Thyroid Stimulating Hormone 1.74 uIU/ml (0.358-3.74)
[2020-06-29] MEDS: POTASSIUM CHLORIDE RIDER 10 MEQ in PREMIX 1 EACH IV PRN (07:00)
[2020-06-29] MEDS ORDERED: POTASSIUM CHLORIDE 20 MEQ PACK PO ONE (10:00)
[2020-06-29] MEDS: LORATADINE 10 MG TABLET PO SCH (10:13)
[2020-06-29] MEDS: PANTOPRAZOLE 40 MG TABLET PO SCH (10:13)
[2020-06-29] MEDS: ASPIRIN EC 81 MG TABLET PO SCH (10:13)
[2020-06-29] MEDS: METOPROLOL SUCCINATE XL 25 MG TABLET PO SCH (10:13)
[2020-06-29] MEDS: TAMSULOSIN 0.4 MG CAPSULE PO SCH (22:23)
[2020-06-29] MEDS: GABAPENTIN 300 MG CAPSULE PO SCH (22:23)
[2020-06-29] MEDS: SIMVASTATIN 20 MG TABLET PO SCH (22:24)
[2020-06-29] MEDS: amLODIPine 5 MG TABLET PO SCH (22:24)
[2020-06-29] MEDS: ENOXAPARIN 40 MG/0.4 ML SYRINGE SUBCUT SCH (22:30)
[2020-06-29] MEDS: cefTRIAXone 1,000 MG in SYRINGE 1 EACH IV SCH (22:31)
[2020-06-29] MEDS: FLUTICASONE 50 MCG NASAL SPRAY 16 GM BOTTLE BOTH NARES SCH (22:44)
[2020-06-30] MEDS: VANCOMYCIN 50 MG/ML 60 ML/BOTTLE PO SCH ×4 (00:06→18:13)
[2020-06-30 06:21] LABS: Basophils # 0.1 10*3/uL (0.0-0.2); Basophils % 0.6 % (0.0-0.8); Eosinophils # 0.2 10*3/uL (0.0-0.87); Eosinophils % 2.2 % (0.00-10.9); Hematocrit 27.8 VOL% (42.0-52.0); Hemoglobin 9.9 GM/DL (14.0-18.0); Immature Granulocytes % 1.6 %; Immature Granulocytes Absolute 0.14 #; Lymphocytes % 11.5 % (21.2-54.2); Mean Corpuscular HGB Conc 35.6 GM/DL (32-36); Mean Corpuscular Volume 83.7 FL (87-102); Mean Platelet Volume 9.9 FL (9.6-12.0); Monocytes % 7.9 % (1.7-12.7); Neutrophils % 76.2 % (38.7-73.9); Platelet Count 354 T/CUMM (130-400); Red Blood Count 3.32 MC/CUMM (3.8-5.5); Red Cell Distribution Width 15.1 % (9.3-17.3); White Blood Count 8.8 T/CUMM (4-12)
[2020-06-30 06:46] LABS: Calcium 8.3 MG/DL (8.5-10.1); Osmolality,Calculated 279.3 MOS/KG (273-304)
[2020-06-30] MEDS: ASPIRIN EC 81 MG TABLET PO SCH (08:18)
[2020-06-30] MEDS: METOPROLOL SUCCINATE XL 25 MG TABLET PO SCH (08:18)
[2020-06-30] MEDS: LORATADINE 10 MG TABLET PO SCH (08:18)
[2020-06-30] MEDS: PANTOPRAZOLE 40 MG TABLET PO SCH (08:18)
[2020-06-30] MEDS ORDERED: POTASSIUM CHLORIDE 20 MEQ/15 ML UDCUP PO ONE (09:00)
[2020-06-30] MEDS ORDERED: MAGNESIUM SULF RIDER 2 GM in PREMIX 1 EACH IV ONE (09:00)
[2020-06-30 16:58] LABS: Potassium 3.4 MMOL/L (3.5-5.1)
[2020-06-30] MEDS: GABAPENTIN 300 MG CAPSULE PO SCH (20:49)
[2020-06-30] MEDS: amLODIPine 5 MG TABLET PO SCH (20:50)
[2020-06-30] MEDS: SIMVASTATIN 20 MG TABLET PO SCH (20:50)
[2020-06-30] MEDS: TAMSULOSIN 0.4 MG CAPSULE PO SCH (20:50)
[2020-06-30] MEDS: ENOXAPARIN 40 MG/0.4 ML SYRINGE SUBCUT SCH (20:52)
[2020-06-30] MEDS: cefTRIAXone 1,000 MG in SYRINGE 1 EACH IV SCH (20:54)
[2020-06-30] MEDS: FLUTICASONE 50 MCG NASAL SPRAY 16 GM BOTTLE BOTH NARES SCH (21:00)
[2020-07-01] MEDS: VANCOMYCIN 50 MG/ML 60 ML/BOTTLE PO SCH ×4 (00:01→17:41)
[2020-07-01] MEDS ORDERED: ACETAMINOPHEN 325 MG TABLET PO PRN (00:22)
[2020-07-01] MEDS: POTASSIUM CHLORIDE RIDER 10 MEQ in PREMIX 1 EACH IV PRN ×2 (02:09→08:50)
[2020-07-01 05:54] LABS: Basophils # 0.1 10*3/uL (0.0-0.2); Basophils % 0.6 % (0.0-0.8); Eosinophils # 0.2 10*3/uL (0.0-0.87); Eosinophils % 2.2 % (0.00-10.9); Hematocrit 27.3 VOL% (42.0-52.0); Hemoglobin 9.7 GM/DL (14.0-18.0); Immature Granulocytes % 2.7 %; Immature Granulocytes Absolute 0.22 #; Mean Corpuscular HGB Conc 35.5 GM/DL (32-36); Mean Corpuscular Volume 84.5 FL (87-102); Mean Platelet Volume 9.7 FL (9.6-12.0); Monocytes % 8.4 % (1.7-12.7); Neutrophils % 74.1 % (38.7-73.9); Platelet Count 355 T/CUMM (130-400); Red Blood Count 3.23 MC/CUMM (3.8-5.5); Red Cell Distribution Width 15.1 % (9.3-17.3); White Blood Count 8.1 T/CUMM (4-12)
[2020-07-01 06:18] LABS: Osmolality,Calculated 279.3 MOS/KG (273-304); Potassium 3.4 MMOL/L (3.5-5.1)
[2020-07-01 06:24] LABS: Band Neutrophils 1 % (0-10); Eosinophils 2 % (0-10); Hypochromasia 1+; Lymphocytes 7 % (20-55); Microcytosis 1+; Ovalocytes Slight; Platelet Estimate Adequate; Segmented Neutrophils 83 % (50-85); Total Cells Counted 100
[2020-07-01] MEDS: PANTOPRAZOLE 40 MG TABLET PO SCH (08:51)
[2020-07-01] MEDS: ASPIRIN EC 81 MG TABLET PO SCH (08:51)
[2020-07-01] MEDS: METOPROLOL SUCCINATE XL 25 MG TABLET PO SCH (08:51)
[2020-07-01] MEDS: LORATADINE 10 MG TABLET PO SCH (08:51)
[2020-07-01 11:06] LABS: Bilirubin,Urine Negative (Negative); Blood, Urine Small mg/dL (Negative); Glucose,Urine (UA) Negative (Negative); Ketones,Urine Negative (Negative); Mucus,Urine Occasional /LPF (Occasional); Nitrite,Urine Negative (Negative); Protein,Urine Negative; RBC,Urine 6 /HPF (0-4); Squamous Epithelial Cell,Urine Occasional /HPF (0-10); Urine Appearance CLEAR (Clear); Urine Color Yellow (Yellow); Urine Specific Gravity 1.013 (1.001-1.035); Urine Urobilinogen < 2.0 EU/DL (0.2-1.0); WBC,Urine 7 /HPF (0-6)
[2020-07-01] MEDS: CHOLESTYRAMINE 4 GM PACK PO SCH ×2 (12:08→21:59)
[2020-07-01] MEDS: FLUTICASONE 50 MCG NASAL SPRAY 16 GM BOTTLE BOTH NARES SCH (21:59)
[2020-07-01] MEDS: GABAPENTIN 300 MG CAPSULE PO SCH (21:59)
[2020-07-01] MEDS: amLODIPine 5 MG TABLET PO SCH (21:59)
[2020-07-01] MEDS: ENOXAPARIN 40 MG/0.4 ML SYRINGE SUBCUT SCH (21:59)
[2020-07-01] MEDS: SIMVASTATIN 20 MG TABLET PO SCH (22:00)
[2020-07-01] MEDS: TAMSULOSIN 0.4 MG CAPSULE PO SCH (22:00)
[2020-07-02] MEDS: VANCOMYCIN 50 MG/ML 60 ML/BOTTLE PO SCH ×3 (00:21→11:45)
[2020-07-02 07:37] LABS: Basophils # 0.1 10*3/uL (0.0-0.2); Basophils % 0.6 % (0.0-0.8); Eosinophils # 0.3 10*3/uL (0.0-0.87); Eosinophils % 3.2 % (0.00-10.9); Hemoglobin 10.1 GM/DL (14.0-18.0); Immature Granulocytes % 3.4 %; Immature Granulocytes Absolute 0.29 #; Lymphocytes # 1.1 10*3/uL (1.4-4.0); Lymphocytes % 12.8 % (21.2-54.2); Mean Corpuscular HGB Conc 34.8 GM/DL (32-36); Mean Corpuscular Volume 84.8 FL (87-102); Mean Platelet Volume 9.7 FL (9.6-12.0); Platelet Count 395 T/CUMM (130-400); Red Blood Count 3.42 MC/CUMM (3.8-5.5); Red Cell Distribution Width 15.2 % (9.3-17.3); White Blood Count 8.5 T/CUMM (4-12)
[2020-07-02 08:00] LABS: Calcium 8.5 MG/DL (8.5-10.1); Osmolality,Calculated 278.3 MOS/KG (273-304); Potassium 3.3 MMOL/L (3.5-5.1)
[2020-07-02] MEDS: CHOLESTYRAMINE 4 GM PACK PO SCH (08:58)
[2020-07-02] MEDS: POTASSIUM CHLORIDE RIDER 10 MEQ in PREMIX 1 EACH IV PRN (08:58)
[2020-07-02] MEDS: PANTOPRAZOLE 40 MG TABLET PO SCH (08:58)
[2020-07-02] MEDS: METOPROLOL SUCCINATE XL 25 MG TABLET PO SCH (08:58)
[2020-07-02] MEDS: LORATADINE 10 MG TABLET PO SCH (08:58)
[2020-07-02] MEDS: ASPIRIN EC 81 MG TABLET PO SCH (08:58)
[2020-07-02] MEDS ORDERED: MAGNESIUM SULF RIDER 4 GM in PREMIX 1 EACH IV PRN (09:42)
[2020-07-02] MEDS ORDERED: MAGNESIUM SULF RIDER 2 GM in PREMIX 1 EACH IV PRN (09:42)
[2020-07-02] MEDS ORDERED: POTASSIUM CHLORIDE 20 MEQ TABLET PO PRN (11:09)
[2020-07-02 11:12] VITALS: BP 139/72
== END 2020-07-02 13:25 | disposition home health service (06) | DRG 372 ==
LOC: N.ED 11:42 → N.EDINP 19:47 → N.3E 21:11
PROVIDERS: ADMIT Internal Medicine; ATTEND Internal Medicine

== ENCOUNTER 2020-08-26 16:29 | Inpatient (IN) ==
[2020-08-26] MEDS ORDERED: SODIUM CHLORIDE 0.9% 1,000 ML IV STA (17:34)
[2020-08-26 17:44] LABS: Basophils % 0.3 % (0.0-0.8); Hematocrit 35.1 VOL% (42.0-52.0); Hemoglobin 11.4 GM/DL (14.0-18.0); Immature Granulocytes % 0.6 %; Immature Granulocytes Absolute 0.06 #; Lymphocytes # 0.8 10*3/uL (1.4-4.0); Lymphocytes % 7.2 % (21.2-54.2); Mean Corpuscular HGB Conc 32.5 GM/DL (32-36); Mean Corpuscular Volume 88.6 FL (87-102); Mean Platelet Volume 9.9 FL (9.6-12.0); Monocytes % 14.7 % (1.7-12.7); Neutrophils % 77.2 % (38.7-73.9); Platelet Count 198 T/CUMM (130-400); Red Blood Count 3.96 MC/CUMM (3.8-5.5); Red Cell Distribution Width 14.9 % (9.3-17.3); White Blood Count 10.9 T/CUMM (4-12)
[2020-08-26 18:29] LABS: Albumin 2.9 G/DL (3.4-5.0); Bilirubin,Total 0.4 MG/DL (0.2-1.0); Calcium 8.7 MG/DL (8.5-10.1); Osmolality,Calculated 271.4 MOS/KG (273-304); Potassium 3.3 MMOL/L (3.5-5.1); Total Protein 6.9 G/DL (6.4-8.3)
[2020-08-26] MEDS ORDERED: ONDANSETRON 4 MG/2 ML VIAL IV PRN (20:56)
[2020-08-26] MEDS ORDERED: CHOLESTYRAMINE 4 GM PACK PO PRN (21:00)
[2020-08-26 21:13] LABS: Bacteria,Urine Occasional /HPF (Few); Bilirubin,Urine Negative (Negative); Blood, Urine Negative (Negative); Glucose,Urine (UA) Negative (Negative); Hyaline Casts,Urine 23 /LPF (0-3); Ketones,Urine Negative (Negative); Mucus,Urine Occasional /LPF (Occasional); Nitrite,Urine Negative (Negative); Protein,Urine Negative; RBC,Urine 3 /HPF (0-4); Squamous Epithelial Cell,Urine Occasional /HPF (0-10); Urine Appearance Slightly Hazy (Clear); Urine Color Yellow (Yellow); Urine Specific Gravity 1.013 (1.001-1.035); Urine Urobilinogen < 2.0 EU/DL (0.2-1.0); WBC,Urine 2 /HPF (0-6)
[2020-08-26] MEDS: ENOXAPARIN 30 MG/0.3 ML SYRINGE SUBCUT SCH (22:35)
[2020-08-26] MEDS: GABAPENTIN 300 MG CAPSULE PO SCH (22:38)
[2020-08-26] MEDS: SIMVASTATIN 20 MG TABLET PO SCH (22:40)
[2020-08-26] MEDS: TAMSULOSIN 0.4 MG CAPSULE PO SCH (22:42)
[2020-08-26] MEDS: SODIUM CHLORIDE 0.9% 1,000 ML IV SCH (22:47)
[2020-08-26] MEDS: FLUTICASONE 50 MCG NASAL SPRAY 16 GM BOTTLE BOTH NARES SCH (23:56)
[2020-08-27] MEDS: VANCOMYCIN 50 MG/ML 60 ML/BOTTLE PO SCH ×2 (01:53→06:35)
[2020-08-27 05:39] LABS: Basophils % 0.2 % (0.0-0.8); Eosinophils # 0.1 10*3/uL (0.0-0.87); Eosinophils % 0.7 % (0.00-10.9); Hematocrit 32.2 VOL% (42.0-52.0); Hemoglobin 10.3 GM/DL (14.0-18.0); Immature Granulocytes % 0.5 %; Immature Granulocytes Absolute 0.04 #; Lymphocytes # 1.1 10*3/uL (1.4-4.0); Lymphocytes % 13.5 % (21.2-54.2); Mean Corpuscular Volume 88.5 FL (87-102); Mean Platelet Volume 10.3 FL (9.6-12.0); Monocytes % 13.7 % (1.7-12.7); Neutrophils % 71.4 % (38.7-73.9); Platelet Count 179 T/CUMM (130-400); Red Blood Count 3.64 MC/CUMM (3.8-5.5); White Blood Count 8.4 T/CUMM (4-12)
[2020-08-27 06:02] LABS: Albumin 2.5 G/DL (3.4-5.0); Calcium 8.2 MG/DL (8.5-10.1); Osmolality,Calculated 277.5 MOS/KG (273-304); Potassium 3.1 MMOL/L (3.5-5.1); Risk Ratio 2.76; Total Protein 5.8 G/DL (6.4-8.3); VLDL CHOLESTEROL 18.8 MG/DL
[2020-08-27 06:24] LABS: Band Neutrophils 5 % (0-10); Eosinophils 1 % (0-10); Hypochromasia 2+; Lymphocytes 12 % (20-55); Platelet Estimate Normal; Segmented Neutrophils 70 % (50-85); Total Cells Counted 100
[2020-08-27] MEDS: ASPIRIN EC 81 MG TABLET PO SCH ×2 (08:22→08:37)
[2020-08-27] MEDS: PANTOPRAZOLE 40 MG TABLET PO SCH ×2 (08:22→08:37)
[2020-08-27] MEDS: LORATADINE 10 MG TABLET PO SCH ×2 (08:22→08:37)
[2020-08-27] MEDS: SODIUM CHLORIDE 0.9% 1,000 ML IV SCH ×2 (09:05→22:41)
[2020-08-27] MEDS ORDERED: INFLUENZA VIRUS VACCINE 0.5 ML SYRINGE IM ONE (09:09)
[2020-08-27] MEDS ORDERED: MAGNESIUM SULF RIDER 4 GM in PREMIX 1 EACH IV PRN (09:11)
[2020-08-27] MEDS ORDERED: MAGNESIUM SULF RIDER 2 GM in PREMIX 1 EACH IV PRN (09:11)
[2020-08-27] MEDS: FIDAXOMICIN 200 MG TABLET PO SCH ×2 (10:12→21:55)
[2020-08-27] MEDS: POTASSIUM CHLORIDE 20 MEQ TABLET PO PRN ×3 (10:55→15:01)
[2020-08-27] MEDS: LACTOBACILLUS ACIDOPHILUS/BULGARICUS CHEW TABLET PO SCH ×2 (17:06→21:56)
[2020-08-27] MEDS: GABAPENTIN 300 MG CAPSULE PO SCH (21:55)
[2020-08-27] MEDS: SIMVASTATIN 20 MG TABLET PO SCH (21:55)
[2020-08-27] MEDS: TAMSULOSIN 0.4 MG CAPSULE PO SCH (21:55)
[2020-08-27] MEDS: FLUTICASONE 50 MCG NASAL SPRAY 16 GM BOTTLE BOTH NARES SCH (21:56)
[2020-08-27] MEDS: ENOXAPARIN 30 MG/0.3 ML SYRINGE SUBCUT SCH (21:57)
[2020-08-28 07:00] LABS: Basophils % 0.5 % (0.0-0.8); Eosinophils # 0.2 10*3/uL (0.0-0.87); Eosinophils % 2.8 % (0.00-10.9); Hematocrit 30.6 VOL% (42.0-52.0); Hemoglobin 10.1 GM/DL (14.0-18.0); Immature Granulocytes % 0.5 %; Immature Granulocytes Absolute 0.03 #; Lymphocytes # 1.2 10*3/uL (1.4-4.0); Mean Corpuscular Volume 87.7 FL (87-102); Monocytes % 10.7 % (1.7-12.7); Neutrophils % 64.5 % (38.7-73.9); Platelet Count 200 T/CUMM (130-400); Red Blood Count 3.49 MC/CUMM (3.8-5.5); White Blood Count 5.6 T/CUMM (4-12)
[2020-08-28 07:24] LABS: Osmolality,Calculated 281.1 MOS/KG (273-304); Potassium 3.1 MMOL/L (3.5-5.1)
[2020-08-28] MEDS: SODIUM CHLORIDE 0.9% 1,000 ML IV SCH ×3 (07:53→19:20)
[2020-08-28] MEDS: FIDAXOMICIN 200 MG TABLET PO SCH ×2 (08:59→21:50)
[2020-08-28] MEDS: LORATADINE 10 MG TABLET PO SCH (08:59)
[2020-08-28] MEDS: ASPIRIN EC 81 MG TABLET PO SCH (08:59)
[2020-08-28] MEDS: PANTOPRAZOLE 40 MG TABLET PO SCH (08:59)
[2020-08-28] MEDS: LACTOBACILLUS ACIDOPHILUS/BULGARICUS CHEW TABLET PO SCH ×2 (09:12→21:52)
[2020-08-28] MEDS: POTASSIUM CHLORIDE 20 MEQ TABLET PO PRN ×5 (09:43→16:55)
[2020-08-28] MEDS: TAMSULOSIN 0.4 MG CAPSULE PO SCH (21:50)
[2020-08-28] MEDS: GABAPENTIN 300 MG CAPSULE PO SCH (21:51)
[2020-08-28] MEDS: SIMVASTATIN 20 MG TABLET PO SCH (21:51)
[2020-08-28] MEDS: ENOXAPARIN 30 MG/0.3 ML SYRINGE SUBCUT SCH (21:53)
[2020-08-28] MEDS: FLUTICASONE 50 MCG NASAL SPRAY 16 GM BOTTLE BOTH NARES SCH (21:57)
[2020-08-29] MEDS: LORATADINE 10 MG TABLET PO SCH (08:26)
[2020-08-29] MEDS: ASPIRIN EC 81 MG TABLET PO SCH (08:26)
[2020-08-29] MEDS: FIDAXOMICIN 200 MG TABLET PO SCH ×2 (08:27→21:58)
[2020-08-29] MEDS: PANTOPRAZOLE 40 MG TABLET PO SCH (08:27)
[2020-08-29] MEDS: LACTOBACILLUS ACIDOPHILUS/BULGARICUS CHEW TABLET PO SCH ×2 (09:11→21:59)
[2020-08-29] MEDS: ACETAMINOPHEN 325 MG TABLET PO PRN (18:08)
[2020-08-29] MEDS: TAMSULOSIN 0.4 MG CAPSULE PO SCH (21:58)
[2020-08-29] MEDS: SIMVASTATIN 20 MG TABLET PO SCH (21:59)
[2020-08-29] MEDS: GABAPENTIN 300 MG CAPSULE PO SCH (21:59)
[2020-08-29] MEDS: FLUTICASONE 50 MCG NASAL SPRAY 16 GM BOTTLE BOTH NARES SCH (22:00)
[2020-08-29] MEDS: ENOXAPARIN 40 MG/0.4 ML SYRINGE SUBCUT SCH (22:02)
[2020-08-30] MEDS: LACTOBACILLUS ACIDOPHILUS/BULGARICUS CHEW TABLET PO SCH ×2 (09:04→22:20)
[2020-08-30] MEDS: ASPIRIN EC 81 MG TABLET PO SCH (09:04)
[2020-08-30] MEDS: PANTOPRAZOLE 40 MG TABLET PO SCH (09:04)
[2020-08-30] MEDS: LORATADINE 10 MG TABLET PO SCH (09:04)
[2020-08-30] MEDS: FIDAXOMICIN 200 MG TABLET PO SCH ×2 (12:41→22:13)
[2020-08-30] MEDS: FLUTICASONE 50 MCG NASAL SPRAY 16 GM BOTTLE BOTH NARES SCH (22:13)
[2020-08-30] MEDS: ENOXAPARIN 40 MG/0.4 ML SYRINGE SUBCUT SCH (22:13)
[2020-08-30] MEDS: TAMSULOSIN 0.4 MG CAPSULE PO SCH (22:13)
[2020-08-30] MEDS: GABAPENTIN 300 MG CAPSULE PO SCH (22:13)
[2020-08-30] MEDS: SIMVASTATIN 20 MG TABLET PO SCH (22:13)
[2020-08-30] MEDS: SODIUM CHLORIDE 0.9% 1,000 ML IV SCH ×2 (22:21→22:22)
[2020-08-31] MEDS: SODIUM CHLORIDE 0.9% 1,000 ML IV SCH (00:31)
[2020-08-31] MEDS: LORATADINE 10 MG TABLET PO SCH (09:53)
[2020-08-31] MEDS: PANTOPRAZOLE 40 MG TABLET PO SCH (09:53)
[2020-08-31] MEDS: ASPIRIN EC 81 MG TABLET PO SCH (09:53)
[2020-08-31] MEDS: FIDAXOMICIN 200 MG TABLET PO SCH (09:53)
[2020-08-31] MEDS: LACTOBACILLUS ACIDOPHILUS/BULGARICUS CHEW TABLET PO SCH (09:54)
[2020-08-31 12:11] VITALS: BP 135/49
[2020-08-31] MEDS: ACETAMINOPHEN 325 MG TABLET PO PRN (12:50)
== END 2020-08-31 12:58 | disposition home or self-care (01) | DRG 372 ==
LOC: N.ED 16:29 → N.EDINP 20:53 → N.3E 08-27 00:05
PROVIDERS: ADMIT Internal Medicine; ATTEND Internal Medicine